=== PATIENT | female | born 1955 | race Native Hawaiian/Other Pacific Islander ===

== ENCOUNTER 2023-05-03 15:06 | Inpatient (IN) | payer MEDICARE, OTHER ==
[~2023-05-03] VITALS: Ht 149.9 cm; Wt 78.2 kg
[~2023-05-03 15:06] MED LIST: ARIP10TA38 PO; HYDR25TA2 PO; METF-444 PO; OMEP20 PO; PARO-38 PO; PRAV40TA4 PO; TELM1TAB4 PO; TRAZ-257 PO
[2023-05-03] MEDS ORDERED: ATEN-72 PO (15:25)
[2023-05-03 16:41] LABS: BASOPHILS % (AUTO) 0.9 % (0.0-2.0); EOSINOPHILS % (AUTO) 4.4 % (1.0-6.0); HEMATOCRIT 37.8 % (36-46); HEMOGLOBIN 12.2 g/dL (12.0-16.0); LYMPHOCYTES # (AUTO) 2.1 K/uL (1.0-4.8); LYMPHOCYTES % (AUTO) 37.4 % (22.0-44.0); MEAN CORPUSCULAR HEMOGLOBIN 30.2 pg (26.0-34.0); MEAN CORPUSCULAR HGB CONC 32.3 G/dL (31.0-37.0); MEAN CORPUSCULAR VOLUME 94 fL (80-100); MONOCYTES # (AUTO) 0.5 K/uL (0.1-1.0); MONOCYTES % (AUTO) 9.1 % (2.0-9.0); NEUTROPHILS # (AUTO) 2.8 K/uL (1.8-7.7); NEUTROPHILS % (AUTO) 48.2 % (40.0-70.0); PLATELET COUNT (AUTO) 198 K/uL (150-450); RED BLOOD CELL COUNT(AUTO) 4.04 MIL/uL (4.00-5.20); RED CELL DISTRIBUTION WIDTH 13.4 % (11.5-14.5)
[2023-05-03] MEDS ORDERED: NITROGLYCERIN 2% (1 GM=INCH) OINTMENT PACKET TP ONE (16:45)
[2023-05-03] MEDS ORDERED: LABETALOL HCL 5 MG/ML 20 ML VIAL IVP ONE (16:45)
[2023-05-03] MEDS ORDERED: PIOG30TA70 PO (16:46)
[2023-05-03] MEDS ORDERED: LOSA-382 PO (16:46)
[2023-05-03] MEDS ORDERED: GABA-529 PO (16:46)
[2023-05-03] MEDS ORDERED: METF-890 PO (16:46)
[2023-05-03] MEDS ORDERED: LISI40TA9 PO (16:46)
[2023-05-03] MEDS ORDERED: AMLO5TAB66 PO (16:46)
[2023-05-03] MEDS ORDERED: CHOL200059 PO (16:46)
[2023-05-03] MEDS ORDERED: TRAZ-252 PO (16:46)
[2023-05-03] MEDS ORDERED: PARO10TA71 PO (16:46)
[2023-05-03] MEDS ORDERED: CALC-1271 PO (16:46)
[2023-05-03 16:54] LABS: PROTHROMBIN TIME 10.9 SEC (9.4-11.6)
[2023-05-03 16:55] LABS: CALCIUM, TOTAL 9.9 mg/dL (8.8-10.5); CREATININE 1.09 mg/dL (0.60-1.30); POTASSIUM 3.9 mmol/L (3.5-5.1)
[2023-05-03 17:19] LABS: ALBUMIN 3.8 g/dL (3.4-5.0); BILIRUBIN,TOTAL 1.1 mg/dL (0.1-1.0); TOTAL PROTEIN, SERUM 7.7 g/dL (6.4-8.2)
[2023-05-03] MEDS ORDERED: LORazepam 2 MG/ML VIAL IVP ONE (17:30)
[2023-05-03] MEDS ORDERED: ONDANSETRON HCL 4 MG/2 ML VIAL IVP PRN (21:00)
[2023-05-03] MEDS ORDERED: MORPHINE SULFATE 2 MG/ML SYRINGE IVP PRN (21:00)
[2023-05-03] MEDS ORDERED: MAGNESIUM HYDROXIDE SUSPENSION 30 ML UDCUP PO PRN (21:00)
[2023-05-03] MEDS ORDERED: HYDROCODONE/ACETAMINOPHEN 5-325 MG TABLET PO PRN (21:00)
[2023-05-03] MEDS ORDERED: OMEPRAZOLE 20 MG CAPSULE PO PRN (21:00)
[2023-05-03] MEDS ORDERED: BISACODYL 10 MG RECTAL RECTAL SUPPOSITORY PR PRN (21:00)
[2023-05-03] MEDS ORDERED: ZOLPIDEM TARTRATE 5 MG TABLET PO PRN (21:00)
[2023-05-03] MEDS ORDERED: HydrALAZINE HCL 20 MG/ML VIAL IVP PRN (21:00)
[2023-05-03 22:10] VITALS: BP 161/67; PULSE 61; RESP 18; TEMP 97.8
[2023-05-04] VITALS: BP 166/63; PULSE 57; RESP 19; TEMP 97.7
[2023-05-04] MEDS: ACETAMINOPHEN 325 MG TABLET PO PRN ×2 (00:06→08:57)
[2023-05-04] MEDS: DOCUSATE SODIUM 100 MG CAPSULE PO SCH ×2 (00:06→08:55)
[2023-05-04 04:30] VITALS: BP 146/65; PULSE 59; RESP 18; TEMP 98
[2023-05-04 07:32] LABS: BASOPHILS % (AUTO) 0.8 % (0.0-2.0); EOSINOPHILS % (AUTO) 4.4 % (1.0-6.0); HEMATOCRIT 35.2 % (36-46); HEMOGLOBIN 11.8 g/dL (12.0-16.0); LYMPHOCYTES # (AUTO) 1.7 K/uL (1.0-4.8); LYMPHOCYTES % (AUTO) 29.7 % (22.0-44.0); MEAN CORPUSCULAR HEMOGLOBIN 31.5 pg (26.0-34.0); MEAN CORPUSCULAR HGB CONC 33.5 G/dL (31.0-37.0); MEAN CORPUSCULAR VOLUME 94 fL (80-100); MONOCYTES # (AUTO) 0.6 K/uL (0.1-1.0); MONOCYTES % (AUTO) 9.7 % (2.0-9.0); NEUTROPHILS # (AUTO) 3.1 K/uL (1.8-7.7); NEUTROPHILS % (AUTO) 55.4 % (40.0-70.0); PLATELET COUNT (AUTO) 173 K/uL (150-450); RED BLOOD CELL COUNT(AUTO) 3.74 MIL/uL (4.00-5.20); RED CELL DISTRIBUTION WIDTH 13.2 % (11.5-14.5)
[2023-05-04 07:42] VITALS: BP 155/73; PULSE 59; RESP 16; TEMP 97.7
[2023-05-04 07:42] LABS: CALCIUM, TOTAL 9.2 mg/dL (8.8-10.5); CREATININE 1.26 mg/dL (0.60-1.30)
[2023-05-04] MEDS: HEPARIN SODIUM,PORCINE 5,000 UNITS/ML VIAL SQ SCH ×2 (08:00)
[2023-05-04] MEDS ORDERED: GABAPENTIN 100 MG CAPSULE PO SCH (09:00)
[2023-05-04] MEDS ORDERED: PIOGLITAZONE HCL 30 MG TABLET PO SCH (09:00)
[2023-05-04] MEDS ORDERED: HYDROCHLOROTHIAZIDE 25 MG TABLET PO SCH (09:00)
[2023-05-04] MEDS ORDERED: CHOLECALCIFEROL (VIT D3) 2,000 UNITS [50 MCG] TABLET PO SCH (09:00)
[2023-05-04] MEDS ORDERED: LOSARTAN POTASSIUM 50 MG TABLET PO SCH (09:00)
[2023-05-04] MEDS ORDERED: AmLODIPine BESYLATE 5 MG TABLET PO SCH (09:00)
[2023-05-04] MEDS ORDERED: PANTOPRAZOLE SODIUM 40 MG DR TABLET PO SCH (09:00)
[2023-05-04] MEDS ORDERED: LISINOPRIL 20 MG TABLET PO SCH (09:00)
[2023-05-04] MEDS ORDERED: ARIPiprazole 10 MG TABLET PO SCH (09:00)
[2023-05-04] MEDS ORDERED: PRAVASTATIN SODIUM 40 MG TABLET PO SCH (09:00)
[2023-05-04] MEDS ORDERED: PARoxetine HCL 10 MG TABLET PO SCH (09:00)
[2023-05-04] MEDS ORDERED: ATENOLOL 50 MG TABLET PO SCH (09:00)
[2023-05-04] MEDS ORDERED: LOSA-382 PO (09:40)
[2023-05-04] MEDS ORDERED: AMLO-258 PO (09:40)
[2023-05-04] MEDS ORDERED: LISI-894 PO (09:40)
[2023-05-04] MEDS ORDERED: HYDR25TA PO (09:40)
[2023-05-04] MEDS ORDERED: ATEN-72 PO (09:40)
[2023-05-04 11:26] VITALS: BP 150/66; PULSE 58; RESP 16; TEMP 98.1
[2023-05-04] MEDS ORDERED: MetFORMIN HCL 500 MG ER TABLET PO SCH (17:30)
== END 2023-05-04 14:54 | disposition home or self-care (01) | DRG 305 ==
LOC: EMS 15:12 → 5S 20:00
PROVIDERS: ADMIT Internal Medicine; ATTEND Internal Medicine
DX: I16.0 Hypertensive urgency (principal); E66.3 Overweight; F32.A Depression, unspecified; I10 Essential (primary) hypertension; Z79.899 Other long term (current) drug therapy; Z68.34 Body mass index [BMI] 34.0-34.9, adult
CPT/HCPCS: 70450; 71045; 80048; 80053; 82550; 83880; 84484; 85025; 85610; 85730; 93005; 99285; G0378; J1644; J2060; J3490; 36415-L1; 36415-TC